=== PATIENT | female | born 1995 | race Caucasian/White ===

== ENCOUNTER 2018-12-01 11:56 | Emergency (ER) | payer OTHER ==
[~2018-12-01] VITALS: Ht 167.6 cm; Wt 74.8 kg
[2018-12-01] MEDS ORDERED: LEVO1TAB56 PO (12:31)
[2018-12-01] MEDS ORDERED: PRD20T PO (12:55)
--- NOTE | 2018-12-01 12:55 | ED Integumentary General ---
General Chief Complaint: Allergic Reaction Stated Complaint: HIVES ALL OVER Nursing Triage Note: PT HAS RASH ON LEGS ARMS AND SL ON TORSO FOR APPROX 2 WEEKS, PT WAS SEEN ON SUN AT [facility] AND RECIEVED A STERIOD INJECTION. PT STATES IN ALSO USING STERIOD CREAM. PT STATES STARTED A NEW BC 3 WEEKS AGO History of Present Illness Date Seen by Provider: Dec 01, 2018 Time Seen by Provider: 12:40 Initial Comments 22-year-old female reports approximately 2 week history of rash to her arms, legs and abdomen. She denies any shortness of air or tightness in her throat. She noted improvement on her low back. Worst area is on her upper thighs. She denies any change in body care products, detergents, or food intake. She does report starting a new, generic form of her control proximally 3 weeks ago. Will begin taking this placebo pills this week. She did have a steroid injection at the [facility] and it seemed to calm the symptoms but not alleviate them. Timing/Duration: intermittent Severity: moderate Location: torso, extremities Possible Cause: no cause identified Associated Symptoms: denies symptoms, change in skin texture; No fever, No flushing, No headache; hives; No nasal congestion; rash; No sore throat Allergies and Home Medications Allergies Coded Allergies: No Known Drug Allergies (Unverified , 12/01/18) Home Medications Prednisone 20 Mg Tab, 40 MG PO DAILY Prescribed by: WALE TALAMANTES on 12/01/18 0400 Patient Home Medication List Home Medication List Reviewed: Yes Review of Systems Review of Systems Constitutional: no symptoms reported, see HPI Skin: see HPI, rash All Other Systems Reviewed Negative Unless Noted: Yes Past Ofekptz-Zumplk-Lemrpu Hx Past Med/Social Hx: Reviewed Nursing Past Med/Soc Hx Patient Social History Alcohol Use: Denies Use Recreational Drug Use: No Smoking Status: Never a Smoker Recent Foreign Travel: No Contact w/Someone Who Travel: No Recent Infectious Disease Expo: No Recent Hopitalizations: No Past Medical History Surgeries: No Respiratory: No Cardiac: No Neurological: No : No Last Menstrual Period: Nov 17, 2018 Genitourinary: No Gastrointestinal: No Musculoskeletal: No Endocrine: No HEENT: No Cancer: No Psychosocial: No Integumentary: No Blood Disorders: No Physical Exam Vital Signs Vital Signs - First Documented 12/01/18 12:22 Temp 97.8 Pulse 90 Resp 18 B/P (MAP) 135/78 (97) Pulse Ox 100 Capillary Refill : Less Than 3 Seconds General Appearance: WD/WN, no apparent distress HEENT: PERRL/EOMI, normal ENT inspection, TMs normal, pharynx normal Neck: non-tender, full range of motion, supple, normal inspection Cardiovascular: normal peripheral pulses, regular rate, rhythm Respiratory: chest non-tender, lungs clear, normal breath sounds Gastrointestinal: normal bowel sounds, non tender, soft Neurologic/Psychiatric: no motor/sensory deficits, alert, normal mood/affect, oriented x 3 Skin: normal color, warm/dry Skin Problem Location: upper extremities, torso, lower extremities Skin Problem Character: macules, papules Lymphatic: no adenopathy Progress/Results/Core Measures Results/Orders Vital Signs/I&O 12/01/18 12/01/18 12:22 13:01 Temp 97.8 97.8 Pulse 90 90 Resp 18 18 B/P (MAP) 135/78 (97) 135/78 (97) Pulse Ox 100 100 Blood Pressure Mean: 97 Departure Impression Primary Impression: Rash Additional Impression: Allergic contact dermatitis Qualified Codes: L23.9 - Allergic contact dermatitis, unspecified cause Disposition: HOME, SELF-CARE Condition: Improved Departure-Patient Inst. Decision time for Depature: 12:50 Referrals: NO,LOCAL PHYSICIAN (PCP/Family) Primary Care Physician Patient Instructions: Skin Rash (DC), Contact Dermatitis (DC) Add. Discharge Instructions: Continue to use Benadryl at night for itching. Follow-up at [facility] if rash is not improving or worsens, or if improves while off of control and then returns when you resume it. Take prednisone as directed. Return to emergency department for new, urgent health care needs. All discharge instructions reviewed with patient and/or family. Voiced understanding. Scripts Prednisone (Prednisone) 20 Mg Tab 40 MG PO DAILY, #6 TAB 0 Refills Prov: WALE TALAMANTES 12/01/18 Copy Copies To 1: MARI JACOBS MD, AMY ARNP Dec 01, 2018 12:55
[2018-12-01 13:01] VITALS: BP 135/78
== END 2018-12-01 13:00 | disposition home or self-care (01) ==
LOC: ER 11:58
DX: L23.9 Allergic contact dermatitis, unspecified cause (principal)
CPT/HCPCS: 99282